=== PATIENT | female | born 1995 | race Caucasian/White ===

== ENCOUNTER 2017-04-27 07:30 | Inpatient (IN) | payer BC ==
[2017-04-27] MEDS ORDERED: Gabapentin 300 MG Cap PO ONE (07:45)
[2017-04-27] MEDS ORDERED: Acetaminophen 500 MG Tab PO ONE (07:45)
[2017-04-27] MEDS ORDERED: Celecoxib 200 MG Cap PO ONE (07:45)
[2017-04-27] MEDS ORDERED: Scopolamine 1.5 MG Transdermal Patch TRDERM PRN (07:45)
[2017-04-27] MEDS ORDERED: Dextrose 5%-Lactated Ringers 1,000 ML IV SCH ×2 (08:00→13:30)
[2017-04-27] MEDS ORDERED: fentaNYL 250 MCG/5 ML SDV ONE ×3 (08:07→10:54)
[2017-04-27] MEDS ORDERED: Midazolam 1 MG/ML 2 ML SDV ONE (08:07)
[2017-04-27] MEDS ORDERED: Glycopyrrolate 0.2 MG/ML 5 ML MDV ONE (08:08)
[2017-04-27] MEDS ORDERED: Propofol 200 MG/20 ML SDV ONE (08:08)
[2017-04-27] MEDS ORDERED: Succinylcholine 200 MG/10 ML MDV ONE (08:08)
[2017-04-27] MEDS ORDERED: Dexamethasone 4 MG/ML SDV ONE (08:08)
[2017-04-27] MEDS ORDERED: Neostigmine Methylsulfate 1 MG/ML 5 ML Syringe ONE (08:08)
[2017-04-27] MEDS ORDERED: Rocuronium 50 MG/5 ML Vial ONE (08:08)
[2017-04-27] MEDS ORDERED: Ondansetron 4 MG/2 ML SDV ONE (08:08)
[2017-04-27] MEDS ORDERED: Scopolamine 1.5 MG Transdermal Patch TRDERM SCH (08:30)
[2017-04-27] MEDS ORDERED: cefOXitin 2 GM Vial ONE (09:03)
[2017-04-27] MEDS ORDERED: cefOXitin 2 GM in Sodium Chloride 0.9% 50 ML IV ONE (09:30)
[2017-04-27] MEDS ORDERED: Ketamine 500 MG/5 ML MDV IV SCH (09:45)
[2017-04-27] MEDS ORDERED: Lidocaine 2% 100 MG/5 ML Syringe IVPUSH ONE (09:45)
[2017-04-27] MEDS ORDERED: Ropivacaine 60 ML, Dexamethasone 8 MG, EPINEPHrine 0.4 MG, Sodium Chloride 0.9% 17.6 ML NERVRT SCH ×4 (09:45)
[2017-04-27] MEDS ORDERED: Metoclopramide 10 MG/2 ML SDV IVPUSH PRN (14:00)
[2017-04-27] MEDS ORDERED: hydrOXYzine HCl 100 MG/2 ML SDV IM PRN (14:00)
[2017-04-27] MEDS ORDERED: diphenhydrAMINE 50 MG/ML SDV IVPUSH PRN (14:00)
[2017-04-27] MEDS ORDERED: Labetalol 20 MG/4 ML Syringe IVPUSH PRN (14:00)
[2017-04-27] MEDS ORDERED: Ondansetron 4 MG/2 ML SDV IVPUSH PRN (14:00)
[2017-04-27] MEDS: cefOXitin 2 GM in Sodium Chloride 0.9% 50 ML IV SCH ×2 (15:10→20:46)
[2017-04-27] MEDS: Gabapentin 250 MG/5 ML Solution ML 470 ML Bottle PO SCH ×2 (15:10→20:46)
[2017-04-27] MEDS: Lidocaine 0.4%/D5W 2 GM/500 ML BAG IV SCH (15:10)
[2017-04-27] MEDS ORDERED: MVI, Adult with Vitamin K 10 ML, Thiamine 200 MG, Chromium/Copper/Mang/Selen/Zn 1 ML in... IV SCH ×4 (16:00)
[2017-04-27] MEDS ORDERED: Pantoprazole 40 MG Vial IVPUSH SCH (16:00)
[2017-04-27] MEDS: Heparin Sodium 5,000 Units/ML Vial SUBCUT SCH (17:30)
[2017-04-27] MEDS: Acetaminophen Soln 650 MG/20.3 ML UD Cup PO SCH ×2 (17:32→22:10)
[2017-04-28] MEDS: cefOXitin 2 GM in Sodium Chloride 0.9% 50 ML IV SCH (02:17)
[2017-04-28] MEDS: Lidocaine 0.4%/D5W 2 GM/500 ML BAG IV SCH (02:19)
[2017-04-28] MEDS: Acetaminophen Soln 650 MG/20.3 ML UD Cup PO SCH ×5 (03:51→21:22)
[2017-04-28] MEDS: Heparin Sodium 5,000 Units/ML Vial SUBCUT SCH ×2 (05:03→17:05)
[2017-04-28] MEDS: Celecoxib 200 MG Cap PO SCH (07:00)
[2017-04-28] MEDS ORDERED: Zolpidem 5 MG Tab PO PRN (08:03)
[2017-04-28] MEDS ORDERED: Dextrose 5%-Lactated Ringers 1,000 ML IV SCH (08:15)
[2017-04-28] MEDS: SCOPOLAMINE PATCH CHECK TOP SCH (08:48)
[2017-04-28] MEDS: Gabapentin 250 MG/5 ML Solution ML 470 ML Bottle PO SCH ×3 (10:15→20:27)
[2017-04-28] MEDS: Citalopram 20 MG Tab PO SCH (10:24)
[2017-04-29] MEDS: Acetaminophen Soln 650 MG/20.3 ML UD Cup PO SCH (04:16)
[2017-04-29] MEDS: Heparin Sodium 5,000 Units/ML Vial SUBCUT SCH (05:31)
[2017-04-29] MEDS: Celecoxib 200 MG Cap PO SCH (07:57)
[2017-04-29] MEDS: Citalopram 20 MG Tab PO SCH (08:07)
[2017-04-29] MEDS: Gabapentin 250 MG/5 ML Solution ML 470 ML Bottle PO SCH (08:08)
[2017-04-29] MEDS: SCOPOLAMINE PATCH CHECK TOP SCH (08:08)
[2017-04-29] MEDS ORDERED: Cyanocobalamin (Vitamin B12) 1,000 MCG/ML SDV IM ONE (09:00)
--- NOTE | 2017-04-30 08:29 | PN ---
DATE OF SERVICE: 04/28/2017 The patient has been afebrile with stable vital signs. Her oral intake has been satisfactory and upper GI x-ray looks good. I will back down the IV rate, go to a step-2 diet today, and continue the present non-narcotic pain management. We will restart her Celexa and Ambien today as well. She will likely be ready for discharge home tomorrow. Ziggy Priest MD /[id number]
--- NOTE | 2017-04-30 09:35 | CR ---
Limited upper GI The patient is status post Barrington-en-Y gastric bypass. There are left upper quadrant drains in place. T here is no extravasation of contrast. The gastric pouch empties readily into a nondilated Barrington limb. No complications are evident. Impression: 1. Status post Barrington-en-Y gastric bypass without evidence for complication.
--- NOTE | 2017-04-30 10:27 | DISCH ---
FINAL DIAGNOSES: 1. Morbid obesity. 2. Paraesophageal diaphragmatic hernia. 3. Mediastinal lipoma. 4. Hepatomegaly. 5. Generalized anxiety disorder. 6. History of bicornuate uterus. OPERATIVE PROCEDURE: This was done on 04/27/2017, diagnostic laparoscopy with: 1. Laparoscopic sleeve gastrectomy. 2. Anshul-Cut needle liver biopsy. 3. Repair of paraesophageal diaphragmatic hernia with mesh. 4. Excision of mediastinal lipoma. SUMMARY: This is a 22-year-old female presenting with longstanding morbid obesity and increasingly significant comorbidities. After preoperative evaluation and discussion, she wished to proceed with a sleeve gastrectomy. This was done on the date of admission along with the above noted procedures. The patient had a moderate hepatomegaly with fatty infiltration of liver grossly. Along with this, a fairly significant diaphragmatic hernia. This was repaired concurrently to minimize problems with postoperative reflux. In the postoperative period, the patient had no significant problems. She will be sent home on a step-2, i.e., liquid diet x1 month to begin advancing to solids thereafter. Medications for pain postoperatively include Celebrex and Tylenol. Otherwise, continue the present home medications, restarting her vitamins and other supplements after the first postoperative appointment. Followup with Marietta Cohen at [facility] on 05/07/2017.
--- NOTE | 2017-05-02 12:10 | OR ---
DATE OF PROCEDURE: 04/27/2017 PREOPERATIVE DIAGNOSIS: Morbid obesity. POSTOPERATIVE DIAGNOSES: 1. Morbid obesity. 2. Marked hepatomegaly. 3. Paraesophageal diaphragmatic hernia. 4. Mediastinal lipoma. OPERATIVE PROCEDURE: 1. Laparoscopic sleeve gastrectomy (48832). 2. Anshul-Cut needle liver biopsy (09231). 3. Repair of paraesophageal diaphragmatic hernia with mesh (97853). 4. Excision of mediastinal lipoma. RIDE ATTENDANT: Marietta Cohen PA-C. ANESTHESIA: General. INDICATION FOR PROCEDURE: A 22-year-old female presenting with longstanding morbid obesity and increasingly significant comorbidities. After preoperative evaluation and discussion, she wished to proceed with a sleeve gastrectomy. Potential risks of procedure including bleeding, infection, leaks from the staple line as well as possible cardiopulmonary, septic, or hemorrhagic complications leading to were discussed, and the patient wishes to proceed. DETAILS OF PROCEDURE: The patient was taken to the operating room. After general endotracheal anesthesia was induced, she was placed in an early lithotomy position. Using a continuous ultrasound, bilateral subcostal transverse abdominis plane blocks were placed using a standard solution. Following this, an orogastric tube was placed and the abdomen was prepped and draped. At 15 cm inferior and 5 cm left of xiphoid process, a transverse incision was made. The peritoneal cavity was entered under direct vision with an Optiview trocar and inflated to 15 mmHg pressure with CO2. Laparoscope was then reinserted. No underlying trocar insertion site injuries were seen. Following this, 5 additional trocars were placed across the upper mid abdomen and general exploration was undertaken. The patient was noted to have marked hepatomegaly with liver volume being roughly 2 to 3 times normal; liver grossly fatty infiltrated. Anshul-Cut needle biopsies were obtained from the left lobe of the liver. Minimal bleeding from the biopsy sites were seen and controlled with electrocautery. The liver was then retracted. The patient was noted to have a fairly significant paraesophageal diaphragmatic hernia, this containing some perigastric fat as well as a tug of omentum in a plane anterior to the course of the esophagus. At that point, the hernia was reduced and the peritoneum to the right, then anterior to the left of the esophagogastric junction was incised with a Harmonic scalpel. Care was taken to avoid injury to the vagus nerves during this dissection. As one approached the area of dissection posterior to the esophagus, mediastinal lipoma was encountered and this was excised and sent as a separate specimen. Once the esophagus was encircled with a [place] drain, the intraabdominal esophageal length was teased out such that eventually 4 cm of intraabdominal esophagus was established. A posterior crural repair using 0 Ethibond sutures with PTFE pledgets were then placed. This repair was then augmented with a portion of Phasix ST mesh placed posterior to the esophagus over the crural repair and then left roughly correction up along the esophagus on each side. These were fixed with titanium tacking screws. At this point, the omentum was begun to be divided off the greater curvature of the stomach with Harmonic scalpel. This continued up through the short gastric vessels including the highest and posterior short gastric vessels. Some loose adhesions behind the gastric body were also then divided with Harmonic scalpel. The omentum was then divided distally with Harmonic scalpel to a point roughly 2 cm proximal to the pylorus. At this point, the posterior aspect of stomach was evaluated and no additional adhesions were noted. The antral staple line extending underneath the incisura angularis and somewhat to the left of that was then marked out with electrocautery and using initially 3 firings of the EMERALD black loads, the initial staple line was configured through those areas. Care was taken to avoid overtightening of the incisura angularis. At this point, a 32-Ecuadorean suction tube was then placed per anesthesia orally and then positioned along the lesser curvature of the stomach and from there somewhat into the antrum. This was then pulled up snugly against the lesser curvature and then suction applied. The remainder of the sleeve gastrectomy was then accomplished with black and purple reinforced EMERALD loads and that specimen was then passed off the site and was removed at the end of the procedure. At this point, the staple line was inspected. No areas of concern were noted. The staple line was then reinforced with fibrin sealant focusing on the proximal and distal ends of the staple line and the omentum then tacked up along the entire length of the staple line as well with some 3-0 Vicryl sutures. At that point, the tube was released from suction and pulled partially up out of the stomach. While the staple line was submerged with an antibiotic-containing saline solution, the air was inflated such that the sleeve gastrectomy was tightly distended. No air leaks were seen and no bleeding was identified. The gastric tube was then removed. The specimen was removed at this point and following this, a single Fausto-Stafford drain was taken through the left lateral trocar site and positioned up against the upper aspect of the sleeve and from there into the splenic fossa. The trocars were then sequentially removed, the peritoneal cavity deflated, incision was closed with some 4-0 Vicryl skin stitch, and the drains were likewise fixed with 4-0 Vicryl stitch. The patient was taken to the recovery room in satisfactory condition. Physician assistant associate professor, Marietta Cohen played an essential role in assisting in this case, helping to position the patient, retract structures as needed, as well as suturing and cutting sutures as indicated, her presence improved the patient's safety and decreased the operative time. Ziggy Priest MD /[id number]
== END 2017-04-29 10:41 | disposition home or self-care (01) | DRG 403 ==
LOC: JP.MS 07:30 → JP.SDS 07:30 → EDSEX 08:00 → EDSTATUS 08:00 → JP.2SS 09:00
PROVIDERS: ADMIT Surgery; ATTEND Surgery
PROC: 0DB64Z3 Excision of Stomach, Percutaneous Endoscopic Approach, Vertical (ICD-10-PCS; principal; 2017-04-27)
PROC: 0WBC4ZX Excision of Mediastinum, Percutaneous Endoscopic Approach, Diagnostic (ICD-10-PCS; 2017-04-27)
PROC: 0BUT4JZ Supplement Diaphragm with Synthetic Substitute, Percutaneous Endoscopic Approach (ICD-10-PCS; 2017-04-27)
PROC: 0FB24ZX Excision of Left Lobe Liver, Percutaneous Endoscopic Approach, Diagnostic (ICD-10-PCS; 2017-04-27)
DX: E66.01 Morbid (severe) obesity due to excess calories (principal); Z68.42 Body mass index [BMI] 45.0-49.9, adult; K44.9 Diaphragmatic hernia without obstruction or gangrene; D17.4 Benign lipomatous neoplasm of intrathoracic organs; R16.0 Hepatomegaly, not elsewhere classified; F41.1 Generalized anxiety disorder; Z87.891 Personal history of nicotine dependence; K76.0 Fatty (change of) liver, not elsewhere classified; Z87.898 Personal history of other specified conditions
CPT/HCPCS: 36415; 74240; 74240-26; 82962; 86850; 86900; 86901; 88304; 88307; 88313; 94762; A9270-GY; C1781; C9113; J0171; J0330; J0694; J1100; J1200; J1644; J2001; J2250; J2405; J2704; J2710; J2795; J3010; J3411; J3420; J7030; J7040; J7042; J7050

== ENCOUNTER 2017-11-08 06:13 | Day surgery (SDC) | payer BC ==
[2017-11-08] MEDS ORDERED: Glycopyrrolate 0.2 MG/ML 5 ML MDV ONE (06:53)
[2017-11-08] MEDS ORDERED: Midazolam 1 MG/ML 2 ML SDV ONE (06:53)
[2017-11-08] MEDS ORDERED: Rocuronium 50 MG/5 ML Vial ONE (06:53)
[2017-11-08] MEDS ORDERED: Ondansetron 4 MG/2 ML SDV ONE (06:53)
[2017-11-08] MEDS ORDERED: Neostigmine Methylsulfate 1 MG/ML 5 ML Syringe ONE (06:53)
[2017-11-08] MEDS ORDERED: fentaNYL 250 MCG/5 ML SDV ONE ×2 (06:53→08:06)
[2017-11-08] MEDS ORDERED: Dexamethasone 4 MG/ML SDV ONE (06:53)
[2017-11-08] MEDS ORDERED: Bupivacaine 0.5%/EPINEPHrine 1:200,000 50 ML MDV ONE (07:01)
[2017-11-08] MEDS: Dextrose 5%-Lactated Ringers 1,000 ML IV SCH ×3 (07:03→23:17)
[2017-11-08] MEDS ORDERED: Celecoxib 200 MG Cap PO ONE (07:30)
[2017-11-08] MEDS ORDERED: Acetaminophen 500 MG Tab PO ONE (07:30)
[2017-11-08] MEDS ORDERED: cefOXitin 2 GM in Sodium Chloride 0.9% 50 ML IV ONE (07:30)
[2017-11-08] MEDS ORDERED: Ropivacaine 46 ML, Dexamethasone 8 MG, EPINEPHrine 0.4 MG, Sodium Chloride 0.9% 31.6 ML NERVRT SCH ×4 (08:00)
[2017-11-08] MEDS ORDERED: Ketamine 500 MG/5 ML MDV IV SCH (08:00)
[2017-11-08] MEDS ORDERED: Propofol 200 MG/20 ML SDV ONE (08:30)
[2017-11-08] MEDS ORDERED: Ondansetron 4 MG/2 ML SDV IVPUSH PRN (09:43)
[2017-11-08] MEDS ORDERED: Zolpidem 5 MG Tab PO PRN (09:45)
[2017-11-08] MEDS ORDERED: HYDROmorphone/Normal Saline 15 MG/30 ML PCA IV PRN (09:51)
[2017-11-08] MEDS ORDERED: Naloxone 0.4 MG/ML SDV IV PRN (09:51)
[2017-11-08] MEDS ORDERED: Pantoprazole 40 MG Vial IV SCH (11:00)
[2017-11-08] MEDS: Acetaminophen/HYDROcodone 325-5 MG Tab PO PRN ×3 (11:27→21:29)
[2017-11-08] MEDS: Citalopram 20 MG Tab PO SCH (11:29)
[2017-11-08] MEDS: cefOXitin 2 GM in Sodium Chloride 0.9% 50 ML IV SCH ×2 (13:35→19:40)
[2017-11-08] MEDS: HYDROmorphone 0.5 MG/0.5 ML Syringe IVPUSH PRN ×2 (14:38→18:18)
[2017-11-08] MEDS: Docusate Sodium 100 MG Cap PO PRN (19:40)
[2017-11-08] MEDS ORDERED: Bisacodyl 5 MG Tab PO ONE (21:00)
[2017-11-08] MEDS ORDERED: traZODone 50 MG Tab PO SCH (21:00)
[2017-11-09] MEDS: cefOXitin 2 GM in Sodium Chloride 0.9% 50 ML IV SCH ×2 (02:08→07:57)
[2017-11-09] MEDS: Acetaminophen/HYDROcodone 325-5 MG Tab PO PRN ×2 (02:08→07:54)
[2017-11-09] MEDS: HYDROmorphone 0.5 MG/0.5 ML Syringe IVPUSH PRN (03:02)
[2017-11-09] MEDS: Docusate Sodium 100 MG Cap PO PRN (07:56)
[2017-11-09] MEDS ORDERED: Celecoxib 200 MG Cap PO SCH (08:00)
[2017-11-09] MEDS: Citalopram 20 MG Tab PO SCH (08:01)
[2017-11-09] MEDS ORDERED: Acetaminophen/oxyCODONE 325-5 MG Tab PO PRN (09:42)
--- NOTE | 2017-11-21 10:22 | OR ---
DATE OF PROCEDURE: 11/08/2017 PREOPERATIVE DIAGNOSIS: Chronic cholecystitis and cholelithiasis. POSTOPERATIVE DIAGNOSIS: Chronic cholecystitis and cholelithiasis. PROCEDURE: Laparoscopic cholecystectomy (25359). ANESTHESIA: General. ALODIZE MACHINE OPERATOR: Marietta Cohen PA-C and LIEN Calvillo. INDICATIONS FOR PROCEDURE: This is a 22-year-old status post sleeve gastrectomy in April of this past year who presents recently with some upper abdominal pain. Ultrasound showed cholelithiasis along with some thickening of the gallbladder wall and tenderness on palpation of the gallbladder. She wishes to undergo cholecystectomy. Potential risks including bleeding, infection, injury to underlying viscera such as common bile duct, problems with stones migrating into the common bile duct all requiring potentially additional procedures for correction as well as possibility of persistent symptoms postoperatively were all gone over and the patient wishes to proceed. DETAILS OF PROCEDURE: The patient was taken to the operating room. After general endotracheal anesthesia was induced, the abdomen was prepped and draped. A transverse incision was then made to right of the umbilicus and the peritoneal cavity entered under direct vision with an Optiview trocar. The peritoneal cavity was inflated to 15 mmHg pressure with CO2. Laparoscope was reinserted. No underlying trocar insertion site injuries were seen. Following this, bilateral subcostal transversus abdominis plane blocks were placed using standard solution and under direct visualization of the needle within the transverse abdominis plane. Following this, 12 mm epigastric trocar was placed along with 5 mm right abdominal trocar. The gallbladder was noted to be somewhat thickened and edematous. This was retracted superiorly and laterally, and the dissection began on the gallbladder neck with the Harmonic scalpel, continued around the gallbladder neck and cystic duct junction. Once that area was delineated as was the adjacent cystic artery, both structures were clipped 3 times proximally and once distally and the gallbladder neck and cystic duct junction divided. The gallbladder was then dissected off the gallbladder bed using Harmonic scalpel and brought out through the epigastric trocar site. It was noted to contain some multiple small stones. The area of dissection was inspected. A drain was felt not to be necessary and no bleeding or bile leaks were seen. The trocars were then sequentially removed from the fascia. the 12 mm sites were closed with 0 Vicryl stitch and the skin with a 4-0 Vicryl skin stitch. Dressing was applied. The patient was taken to the recovery room in satisfactory condition. Physician server service assistant, Marietta Cohen, played an essential role in assisting in this case, helping to position the patient, retract structures as needed, as well as suturing and cutting sutures where indicated. Her presence improved patient safety and decreased the operative time. Ziggy Priest MD /[id number]
== END 2017-11-09 11:15 | disposition home or self-care (01) ==
LOC: JP.SDS 06:13 → JP.MS 08:45 → JP.SDS 11-09 11:15
PROVIDERS: ATTEND Surgery
DX: K80.10 Calculus of gallbladder with chronic cholecystitis without obstruction (principal); E66.9 Obesity, unspecified; Z68.33 Body mass index [BMI] 33.0-33.9, adult; E53.8 Deficiency of other specified B group vitamins; E55.9 Vitamin D deficiency, unspecified; K21.9 Gastro-esophageal reflux disease without esophagitis; F41.9 Anxiety disorder, unspecified; Z79.899 Other long term (current) drug therapy; Z98.84 Bariatric surgery status
CPT/HCPCS: 36415; 47562; 81025; 82247; 84075; 85025; 88304; A9270; C9113; J0171; J0694; J1100; J1170; J2250; J2405; J2704; J2710; J2795; J3010; J7042; J7050

== ENCOUNTER 2024-08-15 12:06 | Emergency (ER) | payer SELFPAY ==
[2024-08-15 13:00] LABS: AMPHETAMINES SCREEN, URINE NEGATIVE (NEGATIVE); BARBITURATE SCREEN,URINE NEGATIVE (NEGATIVE); BENZODIAZEPINES SCREEN,URINE NEGATIVE (NEGATIVE); METHADONE SCREEN, URINE NEGATIVE (NEGATIVE); METHAMPHETAMINES SCREEN, URINE NEGATIVE (NEGATIVE); OXYCODONE SCREEN,URINE NEGATIVE (NEGATIVE); PROPOXYPHENE SCREEN,URINE NEGATIVE (NEGATIVE); THC SCREEN,URINE 50 NG/ML PRESUMPTIVE POSITIVE (NEGATIVE)
[2024-08-15] MEDS ORDERED: LORazepam 2 MG/ML SDV IM ONE (13:05)
== END 2024-08-15 14:41 ==
LOC: JP.ED 12:06
DX: F10.10 Alcohol abuse, uncomplicated (principal); I10 Essential (primary) hypertension; Z88.2 Allergy status to sulfonamides; Z79.899 Other long term (current) drug therapy; Z90.49 Acquired absence of other specified parts of digestive tract; F17.210 Nicotine dependence, cigarettes, uncomplicated; Y90.0 Blood alcohol level of less than 20 mg/100 ml
CPT/HCPCS: 36415; 80305-QW; 80307; 99284